=== PATIENT | female | born 1965 | race African-American/Black ===

== ENCOUNTER 2017-10-27 16:50 | Emergency (ER) | payer MEDICARE, OTHER ==
[~2017-10-27] VITALS: Ht 175.3 cm; Wt 100.0 kg
[~2017-10-27 16:50] MED LIST: DSS100 PO; DULO60CA44 PO; GABA-531 PO; LISI-661 PO; RISP4 PO; VITAD1000 PO
[2017-10-27] MEDS ORDERED: MAGNESIUM SULFATE 2 GM, MVI, ADULT NO.1 WITH VIT K 10 ML, THIAMINE HCL 100 MG, FOLIC AC... IV ONE ×5 (17:00)
[2017-10-27 17:46] LABS: ANION GAP 7 mmol/L (8-16); CALCIUM, TOTAL 9.4 mg/dL (8.8-10.5); CARBON DIOXIDE 31 mmol/L (22-29); CHLORIDE 102 mmol/L (98-107); CREATININE 0.82 mg/dL (0.60-1.30); GLOMERULAR FILTR. RATE CALC > 60 mL/min (>60); POTASSIUM 4.2 mmol/L (3.5-5.1); SODIUM SERUM 140 mmol/L (136-145); UREA NITROGEN, BLOOD 11 mg/dL (7-18)
[2017-10-27 17:52] LABS: ALANINE AMINOTRANSFERASE 50 U/L (12-78); ALBUMIN 3.5 g/dL (3.4-5.0); ASPARTATE AMINOTRANSFERASE 43 U/L (15-37); BILIRUBIN,TOTAL 0.4 mg/dL (0.1-1.0); TOTAL PROTEIN, SERUM 7.5 g/dL (6.4-8.2); VALPROIC ACID 5 mcg/mL (50-100)
[2017-10-27 17:54] LABS: BASOPHILS # (AUTO) 0.02 K/uL (0.00-0.20); BASOPHILS % (AUTO) 0.3 % (0.0-2.0); EOSINOPHILS # (AUTO) 0.16 K/uL (0.00-0.70); EOSINOPHILS % (AUTO) 2.69 % (1.0-6.0); HEMATOCRIT 46.2 % (36-46); HEMOGLOBIN 15.2 g/dL (12.0-16.0); LYMPHOCYTES # (AUTO) 1.6 K/uL (1.0-4.8); LYMPHOCYTES % (AUTO) 26.2 % (22.0-44.0); MEAN CORPUSCULAR HEMOGLOBIN 31.3 pg (26.0-34.0); MEAN CORPUSCULAR HGB CONC 32.9 G/dL (31.0-37.0); MEAN CORPUSCULAR VOLUME 95 fL (80-100); MONOCYTES # (AUTO) 0.5 K/uL (0.1-1.0); MONOCYTES % (AUTO) 8.7 % (2.0-9.0); NEUTROPHILS # (AUTO) 3.7 K/uL (1.8-7.7); NEUTROPHILS % (AUTO) 62.1 % (40.0-70.0); PLATELET COUNT (AUTO) 254 K/uL (150-450); RED BLOOD CELL COUNT(AUTO) 4.85 MIL/uL (4.00-5.20); RED CELL DISTRIBUTION WIDTH 15.3 % (11.5-14.5); WHITE BLOOD COUNT (AUTO) 5.9 K/uL (4.5-11.0)
[2017-10-27 18:27] LABS: APPEARANCE,URINE CLEAR (CLEAR); GLUCOSE, URINE (UA) NEGATIVE (NEGATIVE); KETONES,URINE NEGATIVE (NEGATIVE); LEUKOCYTE ESTERASE ,URINE NEGATIVE (NEGATIVE); OCCULT BLOOD,URINE NEGATIVE (NEGATIVE); PH,URINE 5.5 (5.0-8.0); PROTEIN,URINE TRACE (NEGATIVE)
[2017-10-27 18:29] LABS: ADD UA MICROSCOPIC NO
[2017-10-27 22:44] VITALS: BP 136/78
== END 2017-10-27 22:49 | disposition home or self-care (01) ==
LOC: EMS 16:57
DX: F17.210 Nicotine dependence, cigarettes, uncomplicated (principal); F14.10 Cocaine abuse, uncomplicated
CPT/HCPCS: 36415; 51702; 70450; 80053; 80164; 80307; 81003; 85025; 96365; 96366; 99285; 99406; G0480; J3411; J3475; J3490 ×2; J7030

== ENCOUNTER 2021-08-23 17:32 | Inpatient (IN) | payer MEDICARE, MEDICAID ==
[~2021-08-23] VITALS: Ht 175.3 cm; Wt 103.4 kg
[~2021-08-23 17:32] MED LIST changes: -DSS100 PO; -DULO60CA44 PO; +GABA-1181 PO; -GABA-531 PO; -LISI-661 PO; +LISI-893 PO; +RISP2TAB45 PO; -RISP4 PO; +RISP4TAB73 PO; -VITAD1000 PO
[2021-08-23 18:40] LABS: GLUCOMETER DEV NAME(LOC) POC.BV
[2021-08-23] MEDS ORDERED: LORazepam 2 MG TABLET PO PRN (18:45)
[2021-08-23] MEDS ORDERED: HALOPERIDOL 5 MG TABLET PO PRN (18:45)
[2021-08-23] MEDS ORDERED: ZOLPIDEM TARTRATE 10 MG TABLET PO PRN (18:45)
[2021-08-24 06:05] VITALS: BP 155/89
[2021-08-24 08:17] LABS: BASOPHILS % (AUTO) 0.5 % (0.0-2.0); EOSINOPHILS % (AUTO) 7.6 % (1.0-6.0); HEMATOCRIT 40.3 % (36-46); HEMOGLOBIN 13.4 g/dL (12.0-16.0); LYMPHOCYTES # (AUTO) 1.5 K/uL (1.0-4.8); LYMPHOCYTES % (AUTO) 43.3 % (22.0-44.0); MEAN CORPUSCULAR HEMOGLOBIN 30.8 pg (26.0-34.0); MEAN CORPUSCULAR HGB CONC 33.2 G/dL (31.0-37.0); MEAN CORPUSCULAR VOLUME 93 fL (80-100); MONOCYTES # (AUTO) 0.5 K/uL (0.1-1.0); MONOCYTES % (AUTO) 13.2 % (2.0-9.0); NEUTROPHILS # (AUTO) 1.2 K/uL (1.8-7.7); NEUTROPHILS % (AUTO) 35.4 % (40.0-70.0); PLATELET COUNT (AUTO) 224 K/uL (150-450); RED BLOOD CELL COUNT(AUTO) 4.36 MIL/uL (4.00-5.20)
[2021-08-24 08:27] LABS: HEMOGLOBIN A1C 6.2 % (3.8-5.6)
[2021-08-24 08:48] LABS: ALANINE AMINOTRANSFERASE 15 U/L (12-78); ALBUMIN 3.1 g/dL (3.4-5.0); ALKALINE PHOSPHATASE 58 U/L (46-116); ANION GAP 9 mmol/L (8-16); ASPARTATE AMINOTRANSFERASE 14 U/L (15-37); BILIRUBIN,TOTAL 0.3 mg/dL (0.1-1.0); CALCIUM, TOTAL 8.5 mg/dL (8.8-10.5); CARBON DIOXIDE 26 mmol/L (22-29); CHLORIDE 108 mmol/L (98-107); CHOL/HDL RATIO 2.6 (3.9-5.7); CHOLESTEROL 158 mg/dL (131-200); CREATININE 0.58 mg/dL (0.60-1.30); FREE T4 (FREE THYROXINE) 1.08 ng/dL (0.76-1.46); GLOMERULAR FILTR. RATE CALC > 60 mL/min (>60); GLUCOSE,RANDOM 102 mg/dL (70-110); HDL CHOLESTEROL 61 mg/dL (40-60); LDL CHOL (CALC.) 90 mg/dL (0-130); POTASSIUM 3.9 mmol/L (3.5-5.1); SODIUM SERUM 143 mmol/L (136-145); THYROID STIMULATING HORMONE 0.56 uIU/mL (0.36-3.74); TOTAL PROTEIN, SERUM 6.8 g/dL (6.4-8.2); TRIGLYCERIDES 33 mg/dL (15-150); UREA NITROGEN, BLOOD 15 mg/dL (7-18)
[2021-08-24] MEDS: RisperiDONE 3 MG TABLET PO SCH ×2 (09:10→16:43)
[2021-08-24] MEDS: GABAPENTIN 300 MG CAPSULE PO SCH ×3 (09:10→16:43)
[2021-08-24] MEDS ORDERED: DOCUSATE SODIUM 100 MG CAPSULE PO PRN (12:45)
[2021-08-24] MEDS ORDERED: CloNIDine HCL 0.1 MG TABLET PO PRN (12:45)
[2021-08-24] MEDS ORDERED: MAGNESIUM HYDROXIDE SUSPENSION 30 ML UDCUP PO PRN (12:45)
[2021-08-24] MEDS ORDERED: MAG HYDROX/AL HYDROX/SIMETH ES 30 ML SUSPENSION UDCUP PO PRN (12:45)
[2021-08-24] MEDS ORDERED: BACITRACIN 28 GM OINTMENT TP PRN (12:45)
[2021-08-24] MEDS ORDERED: BENZOCAINE/MENTHOL LOZENGE PO PRN (12:45)
[2021-08-24] MEDS ORDERED: OMEPRAZOLE 20 MG CAPSULE PO PRN (12:45)
[2021-08-24] MEDS ORDERED: PETROLATUM,WHITE 28 GM JELLY TP PRN (12:45)
[2021-08-24] MEDS ORDERED: LOPERAMIDE HCL 2 MG CAPSULE PO PRN (12:45)
[2021-08-24] MEDS ORDERED: ALBUTEROL SULFATE HFA 90 MCG/PUFF 8 GM INHALER IH PRN (12:45)
[2021-08-24] MEDS ORDERED: ONDANSETRON HCL 4 MG TABLET PO PRN (12:45)
[2021-08-24] MEDS ORDERED: IBUPROFEN 600 MG TABLET PO PRN (12:45)
[2021-08-24] MEDS: LISINOPRIL 10 MG TABLET PO SCH (12:54)
[2021-08-24 16:24] VITALS: BP 135/86
[2021-08-25 06:00] VITALS: BP 131/83
[2021-08-25 08:41] VITALS: BP 132/85
[2021-08-25] MEDS: LISINOPRIL 10 MG TABLET PO SCH (09:06)
[2021-08-25] MEDS: GABAPENTIN 300 MG CAPSULE PO SCH ×3 (09:06→16:37)
[2021-08-25] MEDS: RisperiDONE 3 MG TABLET PO SCH ×2 (09:06→16:36)
[2021-08-25 16:23] VITALS: BP 130/81
[2021-08-26 00:53] VITALS: BP 128/70
[2021-08-26 08:11] VITALS: BP 149/84
[2021-08-26] MEDS: GABAPENTIN 300 MG CAPSULE PO SCH ×3 (08:19→16:39)
[2021-08-26] MEDS: LISINOPRIL 10 MG TABLET PO SCH (08:19)
[2021-08-26] MEDS: RisperiDONE 3 MG TABLET PO SCH ×2 (08:23→16:39)
[2021-08-26 11:11] LABS: APPEARANCE,URINE CLEAR (CLEAR); BILIRUBIN,URINE NEGATIVE (NEGATIVE); GLUCOSE, URINE (UA) NEGATIVE (NEGATIVE); KETONES,URINE NEGATIVE (NEGATIVE); LEUKOCYTE ESTERASE ,URINE NEGATIVE (NEGATIVE); NITRATE,URINE NEGATIVE (NEGATIVE); OCCULT BLOOD,URINE NEGATIVE (NEGATIVE); PH,URINE 6.5 (5.0-8.0); PROTEIN,URINE NEGATIVE (NEGATIVE); UROBILINOGEN,URINE 0.2 mg/dL (<=1.0)
[2021-08-26 11:14] LABS: AMPHET/METH SCREEN,URINE NEGATIVE (NEGATIVE); BARBITURATE SCREEN, URINE NEGATIVE (NEGATIVE); BENZODIAZEPINES SCREEN,URINE NEGATIVE (NEGATIVE); CANNABINOID SCREEN,URINE NEGATIVE (NEGATIVE); COCAINE SCREEN,URINE NEGATIVE (NEGATIVE); METHADONE SCREEN, URINE NEGATIVE (NEGATIVE); OPIATE SCREEN,URINE NEGATIVE (NEGATIVE)
[2021-08-26 11:29] LABS: PHENCYCLIDINE SCREEN,URINE NEGATIVE (NEGATIVE)
[2021-08-26 16:16] VITALS: BP 138/92
[2021-08-27 01:18] VITALS: BP 118/67
[2021-08-27 08:21] VITALS: BP 130/75
[2021-08-27] MEDS: LISINOPRIL 10 MG TABLET PO SCH (08:33)
[2021-08-27] MEDS: GABAPENTIN 300 MG CAPSULE PO SCH ×3 (08:33→17:26)
[2021-08-27] MEDS: RisperiDONE 3 MG TABLET PO SCH ×2 (08:35→17:26)
[2021-08-27 16:11] VITALS: BP 131/83
[2021-08-28 02:50] VITALS: BP 129/79
[2021-08-28] MEDS: LISINOPRIL 10 MG TABLET PO SCH (08:30)
[2021-08-28] MEDS: GABAPENTIN 300 MG CAPSULE PO SCH ×3 (08:31→16:32)
[2021-08-28] MEDS: RisperiDONE 3 MG TABLET PO SCH ×2 (08:31→16:32)
[2021-08-28] MEDS: ACETAMINOPHEN 325 MG TABLET PO PRN (08:35)
[2021-08-28 08:55] VITALS: BP 120/68
[2021-08-28 13:21] LABS: GLUCOMETER DEV NAME(LOC) POC.BV
[2021-08-28 16:23] VITALS: BP 120/66
[2021-08-29 00:12] VITALS: BP 125/69
[2021-08-29 08:29] VITALS: BP 131/72
[2021-08-29] MEDS: GABAPENTIN 300 MG CAPSULE PO SCH ×3 (08:43→16:42)
[2021-08-29] MEDS: RisperiDONE 3 MG TABLET PO SCH ×2 (08:43→16:42)
[2021-08-29] MEDS: LISINOPRIL 10 MG TABLET PO SCH (08:43)
[2021-08-29 16:30] VITALS: BP 134/80
[2021-08-29 19:09] VITALS: BP 125/80
[2021-08-29] MEDS: ACETAMINOPHEN 325 MG TABLET PO PRN (19:13)
[2021-08-30 01:13] VITALS: BP 125/74
[2021-08-30] MEDS: RisperiDONE 3 MG TABLET PO SCH (08:03)
[2021-08-30] MEDS: GABAPENTIN 300 MG CAPSULE PO SCH ×3 (08:03→16:38)
[2021-08-30] MEDS: LISINOPRIL 10 MG TABLET PO SCH (08:03)
[2021-08-30 09:10] VITALS: BP 121/69
[2021-08-30] MEDS ORDERED: MULTIVITAMINS WITH MINERALS, THERAPEUTIC TABLET PO SCH (12:00)
[2021-08-30] MEDS ORDERED: GABA-1181 PO (13:26)
[2021-08-30] MEDS ORDERED: RISP3TAB35 PO (13:27)
[2021-08-30 16:19] VITALS: BP 121/75
== END 2021-08-30 17:00 | disposition home or self-care (01) | DRG 885 ==
LOC: B2S 18:40
PROVIDERS: ADMIT Psychiatry & Neurology Psychiatry; ATTEND Psychiatry & Neurology Psychiatry
DX: F25.9 Schizoaffective disorder, unspecified (principal); R45.851 Suicidal ideations; F14.10 Cocaine abuse, uncomplicated; F17.210 Nicotine dependence, cigarettes, uncomplicated; J44.9 Chronic obstructive pulmonary disease, unspecified; K59.00 Constipation, unspecified; M54.40 Lumbago with sciatica, unspecified side; Z20.822 Contact with and (suspected) exposure to COVID-19; R73.03 Prediabetes; Z98.891 History of uterine scar from previous surgery; Z71.6 Tobacco abuse counseling; Z56.0 Unemployment, unspecified
CPT/HCPCS: 80053; 80061; 80307; 81003; 83036; 84439; 84443; 85025